=== PATIENT | female | born 1940 ===

== ENCOUNTER 2018-08-31 11:01 | Outpatient (CLI) | payer OTHER ==
[~2018-08-31] VITALS: Ht 152.4 cm; Wt 79.4 kg
== END 2018-08-31 11:15 | disposition home or self-care (01) ==
LOC: OFIC 805 11:01
DX: G47.33 Obstructive sleep apnea (adult) (pediatric) (principal); R06.83 Snoring; H90.3 Sensorineural hearing loss, bilateral